=== PATIENT | female | born 2000 | race Caucasian/White ===

== ENCOUNTER 2024-12-24 09:39 | Emergency (ER) | payer OTHER, SELFPAY ==
[2024-12-24 09:46] VITALS: BP 119/80; PULSE 90; RESP 20; TEMP 36.6; O2SAT 98
--- NOTE | 2024-12-24 10:05 | ED.URI ---
HPI - URI/Sore Throat General Chief Complaint: Upper Respiratory Infection Stated Complaint: Sinus Infection Time Seen by Provider: 12/24/24 10:05 Source: patient and RN notes reviewed Mode of arrival: ambulatory Limitations: no limitations History of Present Illness HPI Narrative: 24 y/o female presented for c/o nasal congestion, sore throat, and cough. Onset 8 days. Started with right ear pain yesterday when wearing ear buds. Denies sob, wheezing, n/v/d/f/c. MD elicited complaint: cough Related Data Home Medications ?Medication ?Instructions ?Recorded ?Confirmed ?Last Taken ?Type duloxetine 20 mg capsule,delayed 20 mg PO BID 12/24/24 12/24/24 Unknown History release Allergies Allergy/AdvReac Type Severity Reaction Status Date / Time No Known Allergies Allergy Unverified 12/24/24 09:48 Review of Systems Review of Systems: CONSTITUTIONAL: Denies malaise, body aches, chills, sweats, fever EYES: Denies visual changes, redness, or discharge ENT: Reports rhinorrhea, congestion, sinus pain, otalgia, sore throat CARDIOVASCULAR: Denies chest pain, palpitations, edema RESPIRATORY: Reports cough, post nasal drainage. Denies dyspnea GASTROINTESTINAL: Denies abdominal pain, nausea, vomiting, diarrhea SKIN: Denies rash or itching NEUROLOGIC: Denies headache Exam Narrative: GENERAL: Ill-appearing, nontoxic no acute distress. EYES: conjunctivae clear ENT: Mucous membranes moist. right TM erythematous, bulging and intact; canal not erythematous, no drainage Left TM pearly mcgarry with dull light reflex; no tragal tenderness. Oropharynx erythematous without lesions or exudate, no drooling, no hoarseness, no trismus, uvula midline. No tripod positioning, muffled voice, soft palate or pharyngeal wall bulging NECK: Supple. No lymphadenopathy CHEST: Clear to auscultation, breath sounds equal. No wheezing, rhonchi, rales, or stridor. No respiratory distress, speaks in full sentences. HEART: Regular rate and rhythm. SKIN: Warm, dry, no rash. NEURO: Alert and oriented x3. PSYCH: Normal mood and affect Course Course Emergency Course: Patient is aware of diagnosis, understands and agrees to treatment plan. Anticipatory guidance given. Patient agrees to follow-up as directed and is aware of reasons to seek care at the emergency department. Portions of this record may have been created with voice recognition software Level of Care: Express Care Visit Vital Signs Vital signs: Vital Signs Temperature 97.9 F 12/24/24 09:46 Pulse Rate 90 12/24/24 09:46 Respiratory Rate 20 12/24/24 09:46 Blood Pressure 119/80 12/24/24 09:46 Pulse Oximetry 98 12/24/24 09:46 Oxygen Delivery Room Air 12/24/24 09:46 Temperature 97.9 F 12/24/24 09:46 Pulse Rate 90 12/24/24 09:46 Respiratory Rate 20 12/24/24 09:46 Blood Pressure 119/80 12/24/24 09:46 Pulse Oximetry 98 12/24/24 09:46 Oxygen Delivery Room Air 12/24/24 09:46 reviewed MDM - URI/Sore Throat MDM Narrative Medical decision making narrative: Discussed physical exam findings; right AOM. Advised supportive measures and signs/symptoms to go to the ER. Pt is appropriate for outpt treatment and f/u. Differential Diagnosis Differential diagnosis: Likely upper respiratory infection, sinusitis and viral infection Discharge Plan Discharge Clinical Impression: Otitis media Patient Disposition: Home Condition: Stable Instructions: Antibiotic Form, Ear Infection (ED), Rhinosinusitis (ED) Additional Instructions: Right ear infection: Take antibiotics as directed. Recommendations: antihistamine such as Benadryl, Zyrtec or Shandra for sinus congestion Flonase nasal spray, 1 spray in each nostril once daily until symptoms improve Symptomatic treatment includes: rest, fluids, and increase humidity of the air at home. Tylenol and ibuprofen every 8 hours as needed to reduce fever, pain Follow up with your primary care provider as needed in 1 week Go to the ER for worsening symptoms or concerns Patient Language: [place] Prescriptions: New prednisone 20 mg tablet 40 mg PO DAILY 5 Days Qty: 10 0RF amoxicillin-pot clavulanate 875-125 mg tablet 1 tablet PO Q12H 7 Days Qty: 14 0RF No Action duloxetine 20 mg capsule,delayed release(DR/EC) 20 mg PO BID Follow-up/Referrals: Ailyn,MD Samra [Primary Care Provider, Unknown] Time of Disposition: 10:16
== END 2024-12-24 10:20 | disposition home or self-care (01) ==
PROVIDERS: Emergency Provider Nurse Practitioner Family; PCP Family Medicine
DX: H66.91 Otitis media, unspecified, right ear (principal)
CPT/HCPCS: 99213; G0463